=== PATIENT | male | born 1990 | race Caucasian/White ===

== ENCOUNTER 2017-05-06 19:11 | Emergency (ER) | payer OTHER ==
[~2017-05-06] VITALS: Ht 193 cm; Wt 103.0 kg
[2017-05-06 19:12] VITALS: BP 140/97; PULSE 97; RESP 16; TEMP 97.7; O2SAT 99
--- NOTE | 2017-05-06 20:10 | RADRPT ---
EXAM DATE/TIME: 05/06/2017 19:53 [place] COMPARISON: No previous studies available for comparison. INDICATIONS : Right shoulder pain. [place]. MEDICAL HISTORY : None. SURGICAL HISTORY : None. ENCOUNTER: Initial ACUITY: 1 day PAIN SCORE: 6/10 LOCATION: Right shoulder. FINDINGS: 2 views of the right shoulder demonstrate an oblique displaced fracture of the distal right clavicle. The proximal fragment is elevated by approximately 7 mm. Fracture line does not appear to extend int o the acromioclavicular joint. Coracoclavicular distance is within normal limits. There is mild adjac ent soft tissue swelling. Proximal humerus demonstrates no abnormality. Visualized right chest also d emonstrates no acute finding. CONCLUSION: There is an oblique displaced fracture of the distal right clavicle. Saravanan Hassan MD on May 06, 2017 at 20:07 Board Certified Radiologist. This report was verified electronically.
[2017-05-06] MEDS ORDERED: traMADol HCL 50 MG TAB PO ONE (20:15)
[2017-05-06] MEDS ORDERED: IBUPROFEN 600 MG TAB PO ONE (20:15)
[2017-05-06] MEDS ORDERED: IBUP-232 PO (20:20)
[2017-05-06] MEDS ORDERED: TRAM50 PO (20:20)
--- NOTE | 2017-05-06 20:21 | PD ---
HPI . Right shoulder injury Chief Complaint: Injury Time Seen by Provider: 20:06 Travel History International Travel<30 days: No Contact w/Intl Traveler<30days: No Traveled to known affect area: No History of Present Illness HPI 27-year-old male who [place] the beach tripped axial load injury on his right shoulder complains of pain tenderness swelling of the same. Patient has full range of motion has no weakness numbness or tingling. Patient had no loss of consciousness this is an isolated injury and complaint [facility] Past Medical History Narrative Medical No significant past medical history Medical History: Denies Significant Hx Diminished Hearing: No Tetanus Vaccination: Unknown Influenza Vaccination: No Past Surgical History Surgical History: No Previous Surgery Social History Alcohol Use: Yes Tobacco Use: No Substance Use: Yes (kairajuiana) Allergies-Medications (Allergen,Severity, Reaction): Coded Allergies: Penicillins (Verified Allergy, Unknown, 05/06/17) amoxicillin (Verified Allergy, Unknown, 05/06/17) Narrative Medication Allergies and medications reviewed Review of Systems Except as stated in HPI: all other systems reviewed are Neg General / Constitutional: No: Fever Eyes: No: Visual changes HENT: No: Headaches Cardiovascular: No: Chest Pain or Discomfort Respiratory: No: Shortness of Breath Gastrointestinal: No: Abdominal Pain Genitourinary: No: Dysuria Musculoskeletal: Positive: Pain, No: Limited ROM Skin: No Rash Neurologic: No: Weakness Psychiatric: No: Depression Endocrine: No: Polydipsia Hematologic/Lymphatic: No: Easy Bruising Physical Exam Narrative GENERAL: Awake alert oriented 3 no acute distress vital signs afebrile normal study SKIN: Warm and dry. HEAD: Atraumatic. Normocephalic. EYES: Pupils equal and round. No scleral icterus. No injection or drainage. ENT: No nasal bleeding or discharge. Mucous membranes pink and moist. NECK: Trachea midline. No JVD. CARDIOVASCULAR: Regular rate and rhythm. RESPIRATORY: No accessory muscle use. Clear to auscultation. Breath sounds equal bilaterally. GASTROINTESTINAL: Abdomen soft, non-tender, nondistended. Hepatic and splenic margins not palpable. MUSCULOSKELETAL: Right shoulder tender distal clavicle with possible deformity. Otherwise full range of motion neurovascular intact proximal distal right shoulder. NEUROLOGICAL: Awake and alert. No obvious cranial nerve deficits. Motor grossly within normal limits. Five out of 5 muscle strength in the arms and legs. Normal speech. PSYCHIATRIC: Appropriate mood and affect; insight and judgment normal. Data Data Last Documented VS Vital Signs Date Time Temp Pulse Resp B/P (MAP) Pulse Ox O2 Delivery O2 Flow Rate FiO2 05/06/17 19:12 97.7 97 16 140/97 (111) 99 Room Air Orders Orders Shoulder, Limited(2vws) (05/06/17 ) Splint Or Brace Apply/Monitor (05/06/17 20:08) Tramadol (Ultram) (05/06/17 20:15) Ibuprofen (Motrin) (05/06/17 20:15) MDM Medical Decision Making Medical Screen Exam Complete: Yes Emergency Medical Condition: Yes Medical Record Reviewed: Yes Differential Diagnosis Right clavicle fracture distal Narrative Course X-ray right shoulder right clavicle distal fracture third. Sling applied to patient. Patient lives in [place]. Copy of patient's x-ray on CD given to patient, patient instructed to follow-up with orthopedics when he returns to [place] in 2 days. Pain medications ice affected area Diagnosis Primary Impression: Right clavicle fracture Qualified Codes: S42.031A - Displaced fracture of lateral end of right clavicle, initial encounter for closed fracture Patient Instructions: Clavicle Fracture (ED), General Instructions Additional Instructions: Wear sling. Ice affected areas. Motrin 6 mg every 8 hours for pain/ inflammation. Ultram 50 mg every 8 hours for pain not relieved by Motrin. Follow-up with the orthopedic doctor when you return to [place] in the next several days. Take the copy of your shoulder x-ray on CD with you. Return promptly for worsening while in town. Scripts Tramadol (Ultram) 50 Mg Tab 50 MG PO Q8H Y for PAIN, #20 TAB 0 Refills Prov: Chris Alcantara MD 05/06/17 Ibuprofen (Ibuprofen) 600 Mg Tab 600 MG PO Q8H Y for PAIN, #10 TAB 0 Refills Prov: Chris Alcantara MD 05/06/17 Disposition: 01 DISCHARGE HOME Condition: Stable Chris Alcantara MD May 06, 2017 20:20
== END 2017-05-06 20:56 | disposition home or self-care (01) ==
LOC: NEPC 19:11
DX: S42.031A Displaced fracture of lateral end of right clavicle, initial encounter for closed fracture (principal); W01.0XXA Fall on same level from slipping, tripping and stumbling without subsequent striking against object, initial encounter; Y92.832 Beach as the place of occurrence of the external cause; Z88.0 Allergy status to penicillin
CPT/HCPCS: 73030; 99283